=== PATIENT | male | born 1940 | race Caucasian/White ===

== ENCOUNTER 2016-06-14 05:24 | Day surgery (SDC) | payer MEDICARE, BC ==
[~2016-06-14 05:24] MED LIST: ACETAMINOPHEN325 M2 PO; ANTIVERT25 MG PO; ASPIRIN325 M3 PO; ASPIRIN325 MG; ASPIRIN325 MG PO; CALICUM 501 TAB.CHEW; CIPRO500 MG PO; CLONAZEPAM; CO Q-10100 M2 PO; COMPAZINE10 M PO; COREG3.125 M1 PO; CPAP; DOXYCYCLINE HY100 M3 PO; FLOMAX0.4 MG PO; IPRAT-ALBUT 0.5-3 ML NEB; KLONOPIN0.5 M1 PO; KLONOPIN1 MG PO; LASIX20 M1 PO; LASIX20 MG; LISINOPRIL5 MG; LOPRESSOR50 MG; MULTIVITAMINS1 EAC6 PO; NORCO 5/325 TAB1 TAB PO; OXYGEN PO; PLAVIX75 MG; PREDNISONE10 M1 PO; PREDNISONE10 MG PO; PROVENTIL HFA6.7 G1 IH; ROBITUSSIN DM118 ML PO; SPIRIVA18 MC1 IH; SPIRIVA18 MC1 INH; SPIRIVA18 MCG IH; SPIRONOLACTONE25 MG; SYMBICORT 160-1 PUFF INH; TAMIFLU75 MG PO; TRAZODONE HCL100 M1 PO; TRAZODONE50 MG PO; TYLENOL650 MG PO; VITAMIN C500 M3 PO; VITAMIN D2000 UNIT PO; VYTORIN; VYTORIN 10/20 T1 TAB; ZESTRIL2.5 M3 PO; [UNRECOGNIZED DRUG - OTHER]; [UNRECOGNIZED DRUG - OTHER]
[2016-06-14 06:26] LABS: BASO % 0.5 % (0-2); EOSINOPHIL ABSOLUTE COUNT 0.4 tho/cmm (0.0-0.7); HCT-HEMATOCRIT 37.3 % (36.0-53.5); HGB-HEMOGLOBIN 13.2 gm/dl (13.5-17.0); IMMATURE GRANULOCYTES ABSOLUTE 0.01 tho/cmm (0-0.03); IMMATURE GRANULOCYTES PERCENT 0.2 % (0-0.3); LYMPH % 28.6 % (20-45); LYMPH ABSOLUTE COUNT 1.7 tho/cmm (0.8-4.5); MCH (MEAN CORPUSCULAR HGB) 33.4 pg (28.0-32.0); MCHC MEAN CORPUSCULAR HGB CONC 35.4 % (32.0-36.0); MCV (MEAN CELL VOLUME) 94.4 fl (82.0-96.0); MEAN PLATELET VOLUME 9.8 cmc (9.4-12.4); MONO % 8.7 % (0-12); MONOCYTE ABSOLUTE COUNT 0.5 tho/cmm (0.0-1.2); NEUTROPHIL ABSOLUTE COUNT 3.2 tho/cmm (1.6-8.0); NEUTROPHIL-AUTOMATED 3.2 tho/cmm (1.6-8.0); PLATELET COUNT 169 tho/cmm (150-450); RED BLOOD COUNT 3.95 mil/cmm (4.40-5.70); RED CELL DISTRIBUTION WIDTH 13.3 % (12.4-16.4); WHITE BLOOD COUNT 5.9 tho/cmm (4.0-10.0)
[2016-06-14 06:34] LABS: ANION GAP 13 mmol/L (0-20); BLOOD UREA NITROGEN 18 mg/dl (6-24); CALCIUM 8.8 mg/dl (8.5-10.5); CARBON DIOXIDE-VENOUS 25 mmol/L (22-32); CHLORIDE 107 mmol/l (96-110); CREATININE 0.91 mg/dl (0.60-1.30); GLUCOSE 123 mg/dL (70-110); POTASSIUM 4.3 mmol/L (3.7-5.1); SODIUM 141 mmol/L (135-145); eGFR VALUE FOR BLACK >90 mL/Min
[2016-10-15] MEDS ORDERED: ZITHROMAX TRI-500 M1 PO (08:42)
[2016-10-30] MEDS ORDERED: AUGMENTIN 875-1 EAC2 PO (08:51)
[2016-10-30] MEDS ORDERED: LEVAQUIN500 M1 PO (08:52)
[2016-10-30] MEDS ORDERED: DELTASONE20 MG PO (09:07)
[2016-10-30] MEDS ORDERED: STOP HOME MEDICATION (09:08)
== END 2016-06-14 09:50 ==
LOC: SRG 05:24 → SHSB 05:25 → ORW 07:32 → SHSB 08:29
PROVIDERS: Anesthesiology
PROC: 0YU50JZ Supplement Right Inguinal Region with Synthetic Substitute, Open Approach (ICD-10-PCS; principal; 2016-06-14)
DX: K40.90 Unilateral inguinal hernia, without obstruction or gangrene, not specified as recurrent (principal); I25.2 Old myocardial infarction; I25.10 Atherosclerotic heart disease of native coronary artery without angina pectoris; I11.0 Hypertensive heart disease with heart failure; I50.9 Heart failure, unspecified; E78.00 Pure hypercholesterolemia, unspecified; M15.9 Polyosteoarthritis, unspecified; F32.9 Major depressive disorder, single episode, unspecified; G47.30 Sleep apnea, unspecified; J44.9 Chronic obstructive pulmonary disease, unspecified; Z79.82 Long term (current) use of aspirin; Z79.899 Other long term (current) drug therapy; Z87.891 Personal history of nicotine dependence; Z85.118 Personal history of other malignant neoplasm of bronchus and lung; Z90.89 Acquired absence of other organs; Z95.810 Presence of automatic (implantable) cardiac defibrillator; Z95.5 Presence of coronary angioplasty implant and graft; Z98.890 Other specified postprocedural states
CPT/HCPCS: C1781; J0690

== ENCOUNTER 2016-06-15 19:53 | Emergency (ER) | payer MEDICARE, BC ==
[2016-06-15 22:15] LABS: BASO % 0.2 % (0-2); EOS % 1.4 % (0-7); EOSINOPHIL ABSOLUTE COUNT 0.2 tho/cmm (0.0-0.7); HCT-HEMATOCRIT 35.7 % (36.0-53.5); HGB-HEMOGLOBIN 12.6 gm/dl (13.5-17.0); IMMATURE GRANULOCYTES ABSOLUTE 0.02 tho/cmm (0-0.03); IMMATURE GRANULOCYTES PERCENT 0.2 % (0-0.3); LYMPH % 15.5 % (20-45); LYMPH ABSOLUTE COUNT 1.6 tho/cmm (0.8-4.5); MCH (MEAN CORPUSCULAR HGB) 33.3 pg (28.0-32.0); MCHC MEAN CORPUSCULAR HGB CONC 35.3 % (32.0-36.0); MCV (MEAN CELL VOLUME) 94.4 fl (82.0-96.0); MEAN PLATELET VOLUME 9.4 cmc (9.4-12.4); MONO % 10.4 % (0-12); MONOCYTE ABSOLUTE COUNT 1.1 tho/cmm (0.0-1.2); NEUTROPHIL ABSOLUTE COUNT 7.6 tho/cmm (1.6-8.0); NEUTROPHIL-AUTOMATED 7.6 tho/cmm (1.6-8.0); NEUTROPHILS % 72.3 % (40-80); PLATELET COUNT 154 tho/cmm (150-450); RED BLOOD COUNT 3.78 mil/cmm (4.40-5.70); RED CELL DISTRIBUTION WIDTH 13.2 % (12.4-16.4)
[2016-06-15 22:18] LABS: WHITE BLOOD COUNT 10.5 tho/cmm (4.0-10.0)
[2016-06-15 22:19] LABS: URINE BILIRUBIN NEGATIVE (NEG); URINE BLOOD NEGATIVE (NEG); URINE GLUCOSE (UA) NEGATIVE (NEG); URINE KETONE MODERATE (NEG); URINE LEUKOCYTE ESTERASE NEGATIVE (NEG); URINE NITRITE NEGATIVE (NEG); URINE PROTEIN NEGATIVE (NEG)
[2016-06-15 22:20] LABS: URINE APPEARANCE HAZY; URINE COLOR YELLOW
[2016-06-15 22:27] LABS: ANION GAP 14 mmol/L (0-20); BLOOD UREA NITROGEN 14 mg/dl (6-24); CALCIUM 8.5 mg/dl (8.5-10.5); CARBON DIOXIDE-VENOUS 26 mmol/L (22-32); CHLORIDE 99 mmol/l (96-110); GLUCOSE 115 mg/dL (70-110); POTASSIUM 3.8 mmol/L (3.7-5.1); SODIUM 135 mmol/L (135-145); eGFR VALUE FOR BLACK >90 mL/Min
[2016-10-15] MEDS ORDERED: ZITHROMAX TRI-500 M1 PO (08:42)
[2016-10-30] MEDS ORDERED: AUGMENTIN 875-1 EAC2 PO (08:51)
[2016-10-30] MEDS ORDERED: LEVAQUIN500 M1 PO (08:52)
[2016-10-30] MEDS ORDERED: DELTASONE20 MG PO (09:07)
[2016-10-30] MEDS ORDERED: STOP HOME MEDICATION (09:08)
== END 2016-06-15 23:20 ==
LOC: EDMED 19:53
PROVIDERS: Emergency Medicine
PROC: 4A0D7LZ Measurement of Urinary Volume, Via Natural or Artificial Opening (ICD-10-PCS; principal; 2016-06-15)
DX: T40.2X5A Adverse effect of other opioids, initial encounter (principal); E86.0 Dehydration; I11.9 Hypertensive heart disease without heart failure; I25.10 Atherosclerotic heart disease of native coronary artery without angina pectoris; J44.9 Chronic obstructive pulmonary disease, unspecified; Z85.118 Personal history of other malignant neoplasm of bronchus and lung; Z95.5 Presence of coronary angioplasty implant and graft; Z95.0 Presence of cardiac pacemaker; Z87.891 Personal history of nicotine dependence; Z79.51 Long term (current) use of inhaled steroids; Z79.82 Long term (current) use of aspirin; Z79.899 Other long term (current) drug therapy
CPT/HCPCS: J2405; J7030